=== PATIENT | female | born 1945 | race Caucasian/White ===

== ENCOUNTER 2018-03-09 19:09 | Emergency (ER) | payer BC ==
[~2018-03-09] VITALS: Ht 165.1 cm; Wt 93.4 kg
[2018-03-09] MEDS ORDERED: ATOR40TA PO (20:10)
[2018-03-09] MEDS ORDERED: FENO145 PO (20:10)
[2018-03-09] MEDS ORDERED: DULO30 PO (20:10)
[2018-03-09] MEDS ORDERED: QUIN10 PO (20:11)
[2018-03-09] MEDS ORDERED: VERA240ER PO (20:11)
[2018-03-09] MEDS ORDERED: SPIR25 PO (20:12)
[2018-03-09] MEDS ORDERED: HYDCHL25 PO (20:12)
[2018-03-09] MEDS ORDERED: METF500C PO (20:13)
[2018-03-09] MEDS ORDERED: Novolog Fl100 UNIT/1 INJ (20:13)
[2018-03-09] MEDS ORDERED: LEVEMIR FL100 UNIT/1 SC (20:14)
[2018-03-09] MEDS ORDERED: Prednisone50 MG PO (20:38)
[2018-03-09] MEDS ORDERED: BENADRYL25 MG PO (20:38)
[2018-03-09] MEDS ORDERED: Pepcid40 MG PO (20:38)
== END 2018-03-09 20:45 | disposition home or self-care (01) ==
LOC: ER 19:09
DX: T63.441A Toxic effect of venom of bees, accidental (unintentional), initial encounter (principal); I10 Essential (primary) hypertension; E11.9 Type 2 diabetes mellitus without complications; Z91.030 Bee allergy status; Z88.8 Allergy status to other drugs, medicaments and biological substances; Z79.899 Other long term (current) drug therapy; Z79.4 Long term (current) use of insulin; Z79.52 Long term (current) use of systemic steroids
CPT/HCPCS: 99283; Q0163

== ENCOUNTER → 2020-06-18 | Outpatient (CLI) | payer BC ==
[~2020-06-18] MED LIST: ATOR40TA PO; BENADRYL25 MG PO; DULO30 PO; FENO145 PO; HYDCHL25 PO; LEVEMIR FL100 UNIT/1 SC; METF500C PO; Novolog Fl100 UNIT/1 INJ; Pepcid40 MG PO; Prednisone50 MG PO; QUIN10 PO; SPIR25 PO; VERA240ER PO
[2020-06-20 09:16] LABS: Stool Occult Bld Immuno 1 Negative (NEGATIVE)
== END | disposition home or self-care (01) ==
LOC: LAB 14:00
PROVIDERS: Student in an Organized Health Care Education/Training Program
DX: Z12.11 Encounter for screening for malignant neoplasm of colon (principal)
CPT/HCPCS: G0328

== ENCOUNTER 2021-11-03 11:05 | Inpatient (IN) | payer MEDICARE, BC ==
[~2021-11-03] VITALS: Ht 162.6 cm; Wt 85.4 kg
[~2021-11-03 11:05] MED LIST changes: +GLUCOPHAGE1000 M1 PO; -LEVEMIR FL100 UNIT/1 SC; +LEVEMIR FL100 UNIT/2 SC; -METF500C PO; +NOVOLOG100 UNIT/3 SC; -Novolog Fl100 UNIT/1 INJ
[2021-11-03 12:19] LABS: BASOPHILS ABSOLUTE AUTO 0.06 K/mm3 (0.00-0.23); BASOPHILS PERCENT AUTO 1 % (0-2); EOSINOPHILS ABSOLUTE AUTO 0.13 K/mm3 (0.00-0.68); EOSINOPHILS PERCENT AUTO 1 % (0-6); Hematocrit 39.4 % (33.0-51.0); Hemoglobin 12.9 g/dL (11.5-16.0); IMMATURE GRAN ABSOLUTE AUTO 0.03 K/mm3 (0.00-0.10); IMMATURE GRAN PERCENT AUTO 0 % (0-1); LYMPHOCYTES ABSOLUTE AUTO 0.92 K/mm3 (0.84-5.20); LYMPHOCYTES PERCENT AUTO 10 % (21-46); MONOCYTES ABSOLUTE AUTO 0.79 K/mm3 (0.16-1.47); MONOCYTES PERCENT AUTO 8 % (4-13); Mean Corpuscular HGB 28.8 pg (26.0-34.0); Mean Corpuscular HGB Conc 32.7 g/dL (31.5-36.5); Mean Corpuscular Volume 88 fL (80-100); NEUTROPHILS ABSOLUTE AUTO 7.53 K/mm3 (1.96-9.15); NEUTROPHILS PERCENT AUTO 80 % (41-73); Platelet Count 277 K/mm3 (150-400); RDW Coefficient Variation 14.2 % (11.7-14.2); RDW Standard Deviation 45.4 fL (35.1-46.3); Red Blood Cell Count 4.48 M/mm3 (3.80-5.20); White Blood Cell Count 9.46 K/mm3 (4.00-11.30)
[2021-11-03 12:36] LABS: Albumin, Blood 3.9 g/dL (3.4-5.0); Albumin/Globulin Ratio 0.8 (0.8-1.8); Bilirubin, Total 0.5 mg/dL (0.1-1.0); Bun/Creatinine Ratio 49.1 (12.0-20.0); Calcium, Blood 9.8 mg/dL (8.5-10.1); Creatinine, Blood 1.14 mg/dL (0.40-1.00); Globulin, Blood 4.6 g/dL (2.2-4.0); Potassium, Blood 4.8 mmol/L (3.5-5.5); Total Protein, Blood 8.5 g/dL (6.4-8.2)
[2021-11-03] MEDS ORDERED: Cymbalta20 MG PO (13:29)
[2021-11-03] MEDS ORDERED: Accupril40 MG PO (13:30)
[2021-11-03] MEDS ORDERED: HYDROCHLOROTHIA25 MG PO (13:30)
[2021-11-03] MEDS ORDERED: COLACE100 MG PO (13:31)
[2021-11-03] MEDS ORDERED: SPIR50 PO (13:31)
[2021-11-03] MEDS ORDERED: CENTRUM SILVER1 EAC2 PO (13:31)
[2021-11-03] MEDS ORDERED: AREDS (13:32)
[2021-11-03] MEDS ORDERED: CALCIUM 500 MG1 EAC2 (13:33)
[2021-11-03] MEDS ORDERED: TUMERIC (13:33)
[2021-11-03 14:19] LABS: Anti-Xa UFH, PHA Monitoring <0.10 IU/mL; International Normalized Ratio 1.04; Prothrombin Time Results 10.9 Sec (9.7-11.5)
[2021-11-03 14:33] LABS: Creatine Kinase MB 8.4 ng/mL (0.0-3.6); Creatine Kinase MB Index 6.8 (0.0-4.0)
--- NOTE | 2021-11-03 17:30 | NUR ---
Pt arrived to 331 via gurney from ED, a/ox3, pleasant and cooperative with care, follows commands well, denies any pain, but rather pressure and sob with any activity, placed her on 2 liters as she is sob going to the bathroom, lungs are clear in upper hook, fine crackles in bases, resp even with some laboring with activity, no cough noted or reported, hrr, tele in place running sr per security monitor, no edema noted, ppp+1, cap refill <3 sec, vs stable, afebrile, iv site to rac site is clear and patent, infusing heperin gtt as ordered, btx4, abd flat soft nontender, voids without diff, skin c/w/d, daily almazan, oriented to room layout and call system, call light in reach. will be having an angio in am, instructed her on what to expect.
[2021-11-03] MEDS ORDERED: VICTOZA 2-0.6 MG/0.1 SC (17:51)
[2021-11-03] MEDS ORDERED: JARDIANCE10 MG PO (18:33)
--- NOTE | 2021-11-04 05:00 | NUR ---
PT ON HEPARIN DRIP (DOSING PER PHARMACY). MAITAINED NPO FOR ANGIO TODAY. TROPONIN AT [address] NICHOLE NOTIFIED WITH NO NEW ORDERS. TROPONIN AT [address] PIERCE NOTIFIED WITH NO NEW ORDERS. PT TO HAVE ONE MORE TROPONIN AT 0500. PT C/O FEELING ANXIOUS TONIGHT DUE TO CURRENT HOSPITALIZATION AND REQUESTING SOMETHING TO HELP CALM HER NERVES. DR. NICHOLE NOTIFIED WITH ORDER FOR ATIVAN. MEDICATION GIVEN WITH POSTIVE EFFECT.
[2021-11-04 06:05] LABS: BASOPHILS ABSOLUTE AUTO 0.09 K/mm3 (0.00-0.23); BASOPHILS PERCENT AUTO 1 % (0-2); EOSINOPHILS ABSOLUTE AUTO 0.33 K/mm3 (0.00-0.68); EOSINOPHILS PERCENT AUTO 4 % (0-6); Hematocrit 38.4 % (33.0-51.0); Hemoglobin 12.3 g/dL (11.5-16.0); IMMATURE GRAN ABSOLUTE AUTO 0.02 K/mm3 (0.00-0.10); IMMATURE GRAN PERCENT AUTO 0 % (0-1); LYMPHOCYTES PERCENT AUTO 21 % (21-46); MONOCYTES ABSOLUTE AUTO 0.96 K/mm3 (0.16-1.47); MONOCYTES PERCENT AUTO 11 % (4-13); Mean Corpuscular HGB 28.5 pg (26.0-34.0); Mean Corpuscular Volume 89 fL (80-100); Mean Platelet Volume 10.8 fL (9.1-12.4); NEUTROPHILS ABSOLUTE AUTO 5.57 K/mm3 (1.96-9.15); NEUTROPHILS PERCENT AUTO 63 % (41-73); Platelet Count 260 K/mm3 (150-400); RDW Coefficient Variation 14.2 % (11.7-14.2); RDW Standard Deviation 45.7 fL (35.1-46.3); Red Blood Cell Count 4.32 M/mm3 (3.80-5.20); White Blood Cell Count 8.87 K/mm3 (4.00-11.30)
[2021-11-04 06:34] LABS: Alanine Aminotransfer (ALT/SGP 23 U/L (12-78); Albumin, Blood 3.6 g/dL (3.4-5.0); Albumin/Globulin Ratio 0.9 (0.8-1.8); Alk Phos 45 U/L (50-136); Anion Gap 9 mmol/L (6-16); Aspartate Aminotrans (AST/SGOT 29 U/L (12-37); Bilirubin, Total 0.5 mg/dL (0.1-1.0); Blood Urea Nitrogen 44 mg/dL (8-24); Bun/Creatinine Ratio 42.3 (12.0-20.0); CHOL/HDL RATIO 2.8; CO2, Blood 23 mmol/L (21-32); CPK Creatine Kinase 103 U/L (26-193); Calcium, Blood 8.8 mg/dL (8.5-10.1); Chloride, Blood 106 mmol/L (98-108); Cholesterol 103 mg/dL (50-200); Creatine Kinase MB 5.7 ng/mL (0.0-3.6); Creatine Kinase MB Index 5.5 (0.0-4.0); Creatinine, Blood 1.04 mg/dL (0.40-1.00); Globulin, Blood 4.1 g/dL (2.2-4.0); Glomerular Filtration Rate 52 (60-); Glucose, Blood 127 mg/dL (70-99); HDL Cholesterol 37 mg/dL (>39); LDL/HDL RATIO 0.9; Low Density Lipoprotein Chol 33 mg/dL (0-110); Magnesium, Blood 2.1 mg/dL (1.6-2.4); Phosphorus, Blood 3.8 mg/dL (2.5-4.9); Potassium, Blood 4.5 mmol/L (3.5-5.5); Sodium, Blood 138 mmol/L (136-145); Total Protein, Blood 7.7 g/dL (6.4-8.2); Triglycerides 165 mg/dL (30-160); Very Low Density Lipoprot Chol 33 mg/dL (6-32)
--- NOTE | 2021-11-04 07:10 | NUR ---
DOUBLE CHECK HEPARIN W/ DERIAN LARIOS 18U/KG 24.5 ML/HR
--- NOTE | 2021-11-04 07:57 | NUR ---
NOTIFIED OF CRITICAL HIGH TROP @ THIS TIME
--- NOTE | 2021-11-04 14:15 | NUR ---
PT TO PROCEDURE, PLAN TO TRANSFER TO PCU POST ANGIO
--- NOTE | 2021-11-04 15:05 | NUR ---
PT TO RECOVERY ROOM POST PROCEDURE. PT AWAKE AND CONVERSING APPROPRIATELY; DENIES CHEST PAIN POST PROCEDURE. MONITOR SR WITH PAC'S 90'S, B/P 132/71, AFEBRILE, SPO2 92% RA. R RADIAL SITE NO SWELLING/HEMATOMA, TR BAND IN PLACE 10 ML AIR; RUE POSITIVE PLEUTH POST TR BAND PLACEMENT. PT TAKING SIPS OF JUICE WITHOUT ISSUE.
--- NOTE | 2021-11-04 15:31 | NUR ---
REPORT GIVEN TO MARIAJOSE RN PCU VIA TELEPHONE. [facility] BRINGING PT DOWN TO PCU ROOM [address] VS STABLE. PT ALERT AND ORIENTED.
--- NOTE | 2021-11-04 15:35 | NUR ---
PT TO U 9 VIA DIANA, CONDITION STABLE.
--- NOTE | 2021-11-04 15:45 | NUR ---
PATIENT CAME BACK FROM PAINT PREPPER TODAY 11/04/21 AT 1520. ANGIO PATIENT IS ALERT AND ORIENTED X4. VS ARE WNL AND IS ON RA. PATIENT DENIES PAIN AT THIS TIME. RIGHT RADIAL SITE HAS ARM BAND AND IS C/D/I. PATIENT DENIES NUMBNESS AND TINGLING. SHE CAN ALSO MOVE HER FINGERS AND TOES WHEN ASKED. SHE ALSO DENIES CHEST PAIN OR SOB. PATIENT IS TOLERATING SMALL AMOUNTS OF PO INTAKE. PATIENT IS TOLD TO KEEP HER RIGHT ARM DOWN AND NOT ABOVE HEAD. PATIENT VERBALIZED UNDERSTANDING OF INSTRUCTIONS. CALL LIGHT WITHIN REACH.
[2021-11-05 04:18] LABS: Hematocrit 38.2 % (33.0-51.0); Hemoglobin 12.3 g/dL (11.5-16.0); Mean Corpuscular HGB 28.9 pg (26.0-34.0); Mean Corpuscular HGB Conc 32.2 g/dL (31.5-36.5); Mean Corpuscular Volume 90 fL (80-100); Platelet Count 264 K/mm3 (150-400); RDW Coefficient Variation 14.2 % (11.7-14.2); RDW Standard Deviation 46.4 fL (35.1-46.3); Red Blood Cell Count 4.26 M/mm3 (3.80-5.20); White Blood Cell Count 7.03 K/mm3 (4.00-11.30)
[2021-11-05 04:54] LABS: Bun/Creatinine Ratio 36.1 (12.0-20.0); Creatinine, Blood 1.19 mg/dL (0.40-1.00); Potassium, Blood 4.6 mmol/L (3.5-5.5)
--- NOTE | 2021-11-05 05:34 | NUR ---
NOC SHIFT SUMMARY PT SLEPT WELL OVERNIGHT, ORIENTED X4, VSS PER PT TREND, SR ON TELEMETRY, NO COMPLAINTS OF PAIN. TR BAND REMAINED ON AND FULLY INFLATED AT START OF SHIFT. TOOK OUT 11ML OF AIR OVER 1.5 HOURS WITH NO BLEEDING OR HEMATOMA. PT TOLERATED WELL. REMOVED TR BAND AT 2200. TEGARDERM APPLIED TO SITE. WILL CONTINUE TO MONITOR AND PASS ON TO DAY RN.
--- NOTE | 2021-11-05 09:38 | NUR ---
ATTEMPT TO CALL REPORT TO CELSO ENCINAS (TALIA LARIOS) TRANSFERRED TO HER PHONE BY UGO. NO ANSWER AFTER NUMEROUS RINGS. 0935 WILL ATTEMPT AGAIN IN 10 MINUTES.
--- NOTE | 2021-11-05 10:41 | NUR ---
REPORT TO TALIA LARIOS AT [facility]. ALL QUESTIONS ADDRESSED. PATIENT LEAVES VIA GURNEY IN AMBULANCE AT 1030 AM NADN. PATIENT CALM AND HAS PLEASANT AFFECT. WILL NOTIFY SECURITY OF HER CAR IN PARKING LOT AND HAVE THEM KEEP AN EYE ON IT TILL SHE IS ABLE TO HAVE SOMEONE COME GET IT.
== END 2021-11-05 10:38 | disposition short-term general hospital (02) | DRG 282 ==
LOC: ER 11:05 → MEDS 15:48 → PCU 11-04 15:09
PROVIDERS: Emergency Medicine; Internal Medicine Cardiovascular Disease; Physician Assistant; Student in an Organized Health Care Education/Training Program; ADMIT Family Medicine
PROC: 4A023N7 Measurement of Cardiac Sampling and Pressure, Left Heart, Percutaneous Approach (ICD-10-PCS; principal; 2021-11-04)
PROC: B2111ZZ Fluoroscopy of Multiple Coronary Arteries using Low Osmolar Contrast (ICD-10-PCS; 2021-11-04)
PROC: B2151ZZ Fluoroscopy of Left Heart using Low Osmolar Contrast (ICD-10-PCS; 2021-11-04)
DX: I21.4 Non-ST elevation (NSTEMI) myocardial infarction (principal); E11.9 Type 2 diabetes mellitus without complications; I10 Essential (primary) hypertension; E78.5 Hyperlipidemia, unspecified; E66.9 Obesity, unspecified; I25.10 Atherosclerotic heart disease of native coronary artery without angina pectoris; I25.5 Ischemic cardiomyopathy; Z68.35 Body mass index [BMI] 35.0-35.9, adult; Z91.038 Other insect allergy status; Z91.09 Other allergy status, other than to drugs and biological substances; Z79.84 Long term (current) use of oral hypoglycemic drugs; Z79.4 Long term (current) use of insulin; Z79.899 Other long term (current) drug therapy
CPT/HCPCS: 36415; 71045; 80048; 80053; 80061; 82550; 82553; 82947; 83036; 83735; 83880; 84100; 84443; 84484; 85025; 85027; 85520; 85610; 85730; 93005; 93010; 93458; 93880; 96374; 99152; 99153; 99285-25; A9270; C1769; C1894; C8929; J1644; J1815; J2250; J3010; J7030; Q9957; Q9967

== ENCOUNTER 2022-05-07 18:09 | Observation (INO) | payer BC ==
[~2022-05-07] VITALS: Ht 165.1 cm; Wt 86.0 kg
[~2022-05-07 18:09] MED LIST changes: +AREDS; +Accupril40 MG PO; +CALCIUM 500 MG1 EAC2 PO; +CENTRUM SILVER1 EAC2 PO; +COLACE100 MG PO; +Cymbalta20 MG PO; +HYDROCHLOROTHIA25 MG PO; +JARDIANCE10 MG PO; +LANTUS SOL100 UNIT/1 SC; -LEVEMIR FL100 UNIT/2 SC; +SPIR50 PO; +TUMERIC; +VICTOZA 2-0.6 MG/0.1 SC
[2022-05-07 20:55] LABS: BASOPHILS ABSOLUTE AUTO 0.06 K/mm3 (0.00-0.23); BASOPHILS PERCENT AUTO 1 % (0-2); EOSINOPHILS ABSOLUTE AUTO 0.01 K/mm3 (0.00-0.68); EOSINOPHILS PERCENT AUTO 0 % (0-6); Hematocrit 38.1 % (33.0-51.0); Hemoglobin 12.9 g/dL (11.5-16.0); IMMATURE GRAN ABSOLUTE AUTO 0.03 K/mm3 (0.00-0.10); IMMATURE GRAN PERCENT AUTO 0 % (0-1); LYMPHOCYTES ABSOLUTE AUTO 0.57 K/mm3 (0.84-5.20); LYMPHOCYTES PERCENT AUTO 6 % (21-46); MONOCYTES ABSOLUTE AUTO 1.01 K/mm3 (0.16-1.47); MONOCYTES PERCENT AUTO 11 % (4-13); Mean Corpuscular HGB 29.6 pg (26.0-34.0); Mean Corpuscular HGB Conc 33.9 g/dL (31.5-36.5); Mean Corpuscular Volume 87 fL (80-100); Mean Platelet Volume 10.3 fL (9.1-12.4); NEUTROPHILS ABSOLUTE AUTO 7.56 K/mm3 (1.96-9.15); NEUTROPHILS PERCENT AUTO 82 % (41-73); Platelet Count 204 K/mm3 (150-400); RDW Coefficient Variation 13.6 % (11.7-14.2); RDW Standard Deviation 43.8 fL (35.1-46.3); Red Blood Cell Count 4.36 M/mm3 (3.80-5.20); White Blood Cell Count 9.24 K/mm3 (4.00-11.30)
[2022-05-07 21:10] LABS: Albumin, Blood 3.1 g/dL (3.4-5.0); Albumin/Globulin Ratio 0.8 (0.8-1.8); Bilirubin, Total 0.8 mg/dL (0.1-1.0); Calcium, Blood 9.1 mg/dL (8.5-10.1); Creatinine, Blood 0.83 mg/dL (0.40-1.00); Potassium, Blood 4.8 mmol/L (3.5-5.5); Total Protein, Blood 7.1 g/dL (6.4-8.2)
[2022-05-07 21:16] LABS: Source, Urine Clean Catch
[2022-05-07 21:22] LABS: Appearance, Urine Hazy (Clear); Bilirubin, Urine Neg (Neg); Blood, Urine 3+ (Neg); Glucose Qualitative, Urine Neg (Neg); Ketones, Urine Neg (Neg); Leukocyte Esterase, Urine Neg (Neg); Nitrite, Urine Neg (Neg); Protein, Urine 3+ (Neg); Urobilinogen, Urine NORM (Normal)
[2022-05-07 21:31] LABS: Color, Urine Pale Yellow (P-Yellow)
[2022-05-07 21:33] LABS: Bacteria Many /hpf; Red Blood Cells, Urine 0-2 /hpf (0-2); Squamous Epithelial Cells Few /hpf (Few); White Blood Cells, Urine 0-2 /hpf (0-5)
[2022-05-07 21:54] LABS: Creatine Kinase MB Index 0.4 (0.0-4.0)
--- NOTE | 2022-05-08 04:51 | NUR ---
SHIFT SUMMARY: Patient arrived on unit from ED around 414. Pt is A/Ox4 and call light appropriate. Chief complaint is her R hip pain. Denies any numbness/tingling. Pedal pulses strong. Skin warm. IV Toradol given for pain relief. pt is on Tele and running SR. Pt feels very weak and helps minimally when repostioning. Purewick is in place for urination needs.
[2022-05-08 05:20] LABS: Albumin/Globulin Ratio 0.7 (0.8-1.8); Bilirubin, Total 0.6 mg/dL (0.1-1.0); Bun/Creatinine Ratio 39.5 (12.0-20.0); Calcium, Blood 9.1 mg/dL (8.5-10.1); Creatinine, Blood 0.96 mg/dL (0.40-1.00); Globulin, Blood 4.1 g/dL (2.2-4.0); Total Protein, Blood 7.1 g/dL (6.4-8.2)
[2022-05-08] MEDS ORDERED: LISI10 PO (11:53)
[2022-05-08] MEDS ORDERED: CARV6.25 PO (11:54)
[2022-05-08] MEDS ORDERED: FURO40 PO (11:55)
[2022-05-08] MEDS ORDERED: KLOR-CON 1010 ME1 PO (11:55)
[2022-05-08] MEDS ORDERED: Aspir 8181 MG PO (11:57)
--- NOTE | 2022-05-08 18:00 | NUR ---
SHIFT SUMMARY PT DROWSY THE FIRST HALF OF THE SHIFT. MORE ALERT THIS AFTERNOON. WORKED WITH PHYSICAL THERAPY AND GOT OUT OF BED AND INTO CHAIR FOR A FEW HOURS WITH 1P ASSIST. PT PLEASANT & COOPERATIVE THIS SHIFT. HOME MED REC COMPLETED THIS SHIFT AND DR. ARMENTA NOTIFIED. NS AT 50ML/HR STARTED THIS SHIFT. NO OTHER ACUTE CHANGES IN ASSESSMENT AT THIS TIME. VS REVIEWED. CALL LIGHT IN REACH. DENIES OTHER NEEDS AT THIS TIME.
[2022-05-09 04:59] LABS: BASOPHILS ABSOLUTE AUTO 0.06 K/mm3 (0.00-0.23); BASOPHILS PERCENT AUTO 1 % (0-2); EOSINOPHILS ABSOLUTE AUTO 0.47 K/mm3 (0.00-0.68); EOSINOPHILS PERCENT AUTO 8 % (0-6); Hematocrit 33.2 % (33.0-51.0); IMMATURE GRAN ABSOLUTE AUTO 0.02 K/mm3 (0.00-0.10); IMMATURE GRAN PERCENT AUTO 0 % (0-1); LYMPHOCYTES ABSOLUTE AUTO 1.03 K/mm3 (0.84-5.20); LYMPHOCYTES PERCENT AUTO 18 % (21-46); MONOCYTES PERCENT AUTO 12 % (4-13); Mean Corpuscular HGB 29.3 pg (26.0-34.0); Mean Corpuscular HGB Conc 33.1 g/dL (31.5-36.5); Mean Corpuscular Volume 88 fL (80-100); Mean Platelet Volume 9.8 fL (9.1-12.4); NEUTROPHILS ABSOLUTE AUTO 3.62 K/mm3 (1.96-9.15); NEUTROPHILS PERCENT AUTO 61 % (41-73); Platelet Count 167 K/mm3 (150-400); RDW Coefficient Variation 13.4 % (11.7-14.2); RDW Standard Deviation 43.8 fL (35.1-46.3); Red Blood Cell Count 3.76 M/mm3 (3.80-5.20)
[2022-05-09 05:22] LABS: Albumin, Blood 2.6 g/dL (3.4-5.0); Albumin/Globulin Ratio 0.7 (0.8-1.8); Bilirubin, Total 0.4 mg/dL (0.1-1.0); Bun/Creatinine Ratio 50.5 (12.0-20.0); Calcium, Blood 8.7 mg/dL (8.5-10.1); Creatinine, Blood 1.03 mg/dL (0.40-1.00); Globulin, Blood 3.8 g/dL (2.2-4.0); Magnesium, Blood 2.1 mg/dL (1.6-2.4); Phosphorus, Blood 4.2 mg/dL (2.5-4.9); Potassium, Blood 3.9 mmol/L (3.5-5.5); Total Protein, Blood 6.4 g/dL (6.4-8.2)
--- NOTE | 2022-05-09 05:26 | NUR ---
A/OX4; CONFUSED AT TIMES (SELF-REPORTED) AND FORGETFUL. CALM AND COOPERATIVE. C/O MILD HIP PAIN; PER PATIENT TYLENOL WAS INEFFECTIVE BUT THE TORADOL WAS HELPFUL; DENIED PAIN AT REASSESSMENT. 1X ASSIST TO TRANSFER PER REPORT, NOT OOB THIS SHIFT. 2X ASSIST Q2 TURN (BLANCHABLE REDNESS COCCYX). PUREWICK IN PLACE OVERNIGHT. TELE: SR 60's -80's. NEW IV PLACED L FA; IVF INFUSING. BED ALARM SET. CALL LIGHT IN REACH; ENCOURAGED TO MAKE NEEDS KNOWN.
--- NOTE | 2022-05-09 17:39 | NUR ---
SHIFT SUMMARY VINNIE REMOVED THIS AM. PT NOW USING THE BATHROOM OR BSC FOR TOILETING. OT SHOWERED TODAY. MEDICATED WITH VISCOUS LIDOCAINE AND TYLENOL FOR MOUTH PAIN TODAY. PT STATES THEY HAVE IMPROVED HER PAIN. CURRENTLY SITTING ON THE EDGE OF THE BED, EATING DINNER. IV FLUIDS DCED. DR. BEGUM NOTIFED THAT PT NEEDED SOME BOWEL CARE. COLACE WAS GIVEN ORDERED AND PT SINCE HAS HAD A BM. ALSO NOTIFED THAT THE PT STATES SHE TAKES HER LANTUS TWICE A DAY. ORDERS WERE UPDATED. NO OTHER ACUTE CHANGES IN ASSESSMENT AT THIS TIME. VS REVIEWED.
[2022-05-10 04:42] LABS: Bun/Creatinine Ratio 49.6 (12.0-20.0); Creatinine, Blood 0.79 mg/dL (0.40-1.00); Potassium, Blood 4.3 mmol/L (3.5-5.5)
--- NOTE | 2022-05-10 06:05 | NUR ---
A/OX4; FORGETFUL AT TIMES. CALM AND COOPERATIVE. C/O SEVERE L SIDE DENTAL AND TONGUE PAIN, ORDER FOR TRAMADOL OBTAINED; GIVEN 2X THIS SHIFT WITH VERY MINIMAL EFFECT PER PATIENT. ORDER OBTAINED FOR 1X DOSE FENTYNAL; HELPFUL PER PATIENT. TELE: SR WITH HR IN 60's. ABX PER ORDERS. BLANCHABLE REDNESS TO COCCYX; REPOSITIONED FREQUENTLY THROUGHOUT SHIFT. 1X ASSIST TO BSC WITH WALKER AND GAITBELT. BED ALARM SET, CALL LIGHT IN REACH, ENCOURAGED TO MAKE NEEDS KNOWN.
--- NOTE | 2022-05-10 16:09 | NUR ---
SHIFT SUMMARY PT IS ENCOURAGED AND MOTIVED TO INCREASE AMBULATION. AA0X4 TODAY. PAIN LOCALIZED TO HER JAW ON THE LEFT SIDE. CT SCAN DONE TODAY. PT REPORTS SOME PAIN ON COCCYX, DRESSING APPLIED FOR COMFORT AND PREVENTION. ABX INFUSING PER ORDERS. PT HAS DECLINED PAIN MEDICATION DURING SHIFT.
--- NOTE | 2022-05-11 06:12 | NUR ---
A/OX4; FORGETFUL AT TIMES. CALM AND COOPERATIVE. TELE: SR WITH HR IN 60's. BLANCHABLE REDNESS TO COCCYX; ANTI-FUNGAL CREAM PER ORDERS AND REPOSITIONED FREQUENTLY THROUGHOUT SHIFT. 1X ASSIST TO BSC WITH WALKER AND GAITBELT. BED ALARM SET, CALL LIGHT IN REACH, ENCOURAGED TO MAKE NEEDS KNOWN.
[2022-05-11 07:59] LABS: Hematocrit 35.6 % (33.0-51.0); Hemoglobin 11.7 g/dL (11.5-16.0); Mean Corpuscular HGB 28.5 pg (26.0-34.0); Mean Corpuscular HGB Conc 32.9 g/dL (31.5-36.5); Mean Corpuscular Volume 87 fL (80-100); Mean Platelet Volume 9.8 fL (9.1-12.4); Platelet Count 213 K/mm3 (150-400); RDW Coefficient Variation 12.9 % (11.7-14.2); RDW Standard Deviation 40.8 fL (35.1-46.3); Red Blood Cell Count 4.11 M/mm3 (3.80-5.20); White Blood Cell Count 5.85 K/mm3 (4.00-11.30)
[2022-05-11 08:18] LABS: Albumin, Blood 2.8 g/dL (3.4-5.0); Albumin/Globulin Ratio 0.7 (0.8-1.8); Bilirubin, Total 0.4 mg/dL (0.1-1.0); Bun/Creatinine Ratio 36.4 (12.0-20.0); Calcium, Blood 9.5 mg/dL (8.5-10.1); Creatinine, Blood 0.74 mg/dL (0.40-1.00); Globulin, Blood 4.1 g/dL (2.2-4.0); Potassium, Blood 4.8 mmol/L (3.5-5.5); Total Protein, Blood 6.9 g/dL (6.4-8.2)
[2022-05-11 08:54] LABS: BAND PERCENT MAN 3 % (0-8); BASOPHILS ABSOLUTE MAN 0.11 K/mm3 (0.00-0.23); BASOPHILS PERCENT MAN 2 % (0-2); EOSINOPHILS ABSOLUTE MAN 0.64 K/mm3 (0.00-0.68); EOSINOPHILS PERCENT MAN 11 % (0-6); LYMPHOCYTES ABSOLUTE MAN 1.75 K/mm3 (0.84-5.20); LYMPHOCYTES PERCENT MAN 28 % (21-46); MONOCYTES ABSOLUTE MAN 0.35 K/mm3 (0.16-1.47); MONOCYTES PERCENT MAN 6 % (4-13); NEUTROPHILS ABSOLUTE MAN 2.86 K/mm3 (1.96-9.15); SEG NEUTROPHILS PERCENT MAN 46 % (41-73); TOTAL CELLS COUNTED 100
[2022-05-11 08:55] LABS: PLASMA CELL ABSOLUTE MAN 0.11 K/mm3 (0.00-0.00); PLASMA CELLS PERCENT MAN 2 % (0-0)
[2022-05-11 08:56] LABS: LYMPHOCYTES % ATYPICAL MANUAL 2 % (0-0)
--- NOTE | 2022-05-11 10:59 | NUR ---
PT IS ON ROOM AIR. ANXIOUS. WORKED WITH PHYSICAL THERAPY TODAY, AMBULATED TO BATHROOM AND END OF HALLWAY. COOPERATIVE WITH CARE. DR. ORONA AT BEDSIDE, DISCUSSING DISCHARGE TO SNF TODAY. GLASS WORKER DISCUSSED DISCHARGE WITH PT. A&O X 4. IV ACCESS TO RIGHT ARM. MANIFOLD OPERATOR REPORTS SINUS 94.
[2022-05-11 13:51] LABS: Influenza A, PCR NEGATIVE (NEGATIVE); Influenza B, PCR NEGATIVE (NEGATIVE); Resp Syncytial Virus, PCR NEGATIVE (NEGATIVE); SARS-Cov-2 (COVID-19) PCR, MMC NEGATIVE (NEGATIVE)
[2022-05-11] MEDS ORDERED: ACET325 PO (15:01)
[2022-05-11] MEDS ORDERED: Norvasc5 MG PO (15:01)
[2022-05-11] MEDS ORDERED: AMOCLA875 PO (15:02)
[2022-05-11] MEDS ORDERED: KETO15TC TOP (15:03)
[2022-05-11] MEDS ORDERED: TRAM50 PO (15:03)
--- NOTE | 2022-05-11 15:10 | NUR ---
pt is being transported to [facility] via wheelchair and [facility]. Facesheet given to [facility]. Personal belongings given to pt. IV removed, Telemetry patches removed. Pt tolerated discharge procedure. Packet prepared by discharge rehab department manager given to [facility]. RN called report to Nurse Lebron at [facility].
== END 2022-05-11 15:21 ==
LOC: ER 18:09 → MEDS 18:10
PROVIDERS: Emergency Medicine; Family Medicine; Hospitalist; Student in an Organized Health Care Education/Training Program; ADMIT Family Medicine
DX: T79.6XXA Traumatic ischemia of muscle, initial encounter (principal); N39.0 Urinary tract infection, site not specified; M25.552 Pain in left hip; N18.31 Chronic kidney disease, stage 3a; Z95.1 Presence of aortocoronary bypass graft; E11.9 Type 2 diabetes mellitus without complications; E78.5 Hyperlipidemia, unspecified; Z66 Do not resuscitate; R21 Rash and other nonspecific skin eruption; Z88.8 Allergy status to other drugs, medicaments and biological substances; Z91.038 Other insect allergy status; Z79.84 Long term (current) use of oral hypoglycemic drugs; Z79.4 Long term (current) use of insulin; Z20.822 Contact with and (suspected) exposure to COVID-19
CPT/HCPCS: 0241U; 36415; 70450; 70487; 71045; 73502; 80048; 80053; 81001; 82550; 82553; 82947; 83735; 84100; 85025; 87077; 87086; 87186; 93005; 93010; 96361; 96372; 96374; 96375; 96376; 97110; 97116; 97162; 97165; 97530; 97535; A9270; G0378; J0696; J1650; J1815; J1885; J3010; J7030; Q9967

== ENCOUNTER → 2022-06-02 | Outpatient (CLI) | payer BC ==
[~2022-06-02] MED LIST changes: +ACET325 PO; +AMOCLA875 PO; +Aspir 8181 MG PO; +CARV6.25 PO; +FURO40 PO; +KETO15TC TOP; +KLOR-CON 1010 ME1 PO; +LISI10 PO; +Norvasc5 MG PO; +TRAM50 PO
== END | disposition home or self-care (01) ==
DX: R39.9 Unspecified symptoms and signs involving the genitourinary system (principal)

== ENCOUNTER 2022-12-01 15:11 | Inpatient (IN) | payer OTHER, MEDICARE, BC ==
[~2022-12-01] VITALS: Ht 162.6 cm; Wt 88.0 kg
[2022-12-01 17:47] LABS: BASOPHILS ABSOLUTE AUTO 0.08 K/mm3 (0.00-0.23); BASOPHILS PERCENT AUTO 1 % (0-2); EOSINOPHILS ABSOLUTE AUTO 0.28 K/mm3 (0.00-0.68); EOSINOPHILS PERCENT AUTO 3 % (0-6); Hematocrit 37.6 % (33.0-51.0); Hemoglobin 12.6 g/dL (11.5-16.0); IMMATURE GRAN ABSOLUTE AUTO 0.07 K/mm3 (0.00-0.10); IMMATURE GRAN PERCENT AUTO 1 % (0-1); LYMPHOCYTES ABSOLUTE AUTO 0.77 K/mm3 (0.84-5.20); LYMPHOCYTES PERCENT AUTO 7 % (21-46); MONOCYTES ABSOLUTE AUTO 0.58 K/mm3 (0.16-1.47); MONOCYTES PERCENT AUTO 6 % (4-13); Mean Corpuscular HGB 29.6 pg (26.0-34.0); Mean Corpuscular HGB Conc 33.5 g/dL (31.5-36.5); Mean Corpuscular Volume 88 fL (80-100); Mean Platelet Volume 9.4 fL (9.1-12.4); NEUTROPHILS ABSOLUTE AUTO 8.61 K/mm3 (1.96-9.15); NEUTROPHILS PERCENT AUTO 83 % (41-73); Platelet Count 266 K/mm3 (150-400); RDW Coefficient Variation 13.3 % (11.7-14.2); RDW Standard Deviation 43.2 fL (35.1-46.3); Red Blood Cell Count 4.26 M/mm3 (3.80-5.20); White Blood Cell Count 10.39 K/mm3 (4.00-11.30)
[2022-12-01 18:07] LABS: Bun/Creatinine Ratio 31.2 (12.0-20.0); Calcium, Blood 9.5 mg/dL (8.5-10.1); Creatinine, Blood 1.12 mg/dL (0.40-1.00); Potassium, Blood 4.9 mmol/L (3.5-5.5)
[2022-12-01 18:11] LABS: International Normalized Ratio 0.97; Prothrombin Time Results 10.2 Sec (9.7-11.5)
[2022-12-01 19:13] LABS: Source, Urine Foley catheter
[2022-12-01 19:18] LABS: Appearance, Urine Clear (Clear); Bilirubin, Urine Neg (Neg); Blood, Urine 2+ (Neg); Color, Urine Yellow (P-Yellow); Glucose Qualitative, Urine 1+ (Neg); Ketones, Urine Neg (Neg); Leukocyte Esterase, Urine Neg (Neg); Nitrite, Urine Neg (Neg); Protein, Urine 4+ (Neg); Urobilinogen, Urine NORM (Normal)
[2022-12-01 19:37] LABS: Squamous Epithelial Cells Rare /hpf (Few); White Blood Cells, Urine 0-2 /hpf (0-5)
[2022-12-01 19:38] LABS: Amorphous Light (0-Heavy); Bacteria Mod /hpf; Hyaline Casts 0-2 /lpf (0-2); Mucus Light (0-Heavy)
[2022-12-01 20:35] VITALS: BP 189/76
--- NOTE | 2022-12-01 21:38 | NUR ---
ARRIVAL PT ARRIVED TO THE FLOOR FROM ER IN NO DISTRESS. A/OX4. PT C/O RIGHT HIP PAIN. RLE APPEARS TO BE SHORTENED AND EXTERNALLY ROTATED. PT REPORTS GOOD SENSATION AND GOOD PULSES NOTED. VSS, HTN NOTED. MEDICATED FROR PAIN AND PLAN TO REASSESS, PRN MEDICATION FOR BP ON EMAR. COYLE PLACED IN ER, FRAINING CLEAR YELLOW URINE. PLAN FOR PT TO BE NPO AT 0000 IN ANTICIPATION FOR SURGERY. THE PATIENT IS CURRENTLY RESTING, IN NO DISTRESS, CALL LIGHT IN REACH
[2022-12-01 22:06] VITALS: BP 187/78
[2022-12-01 23:27] VITALS: BP 166/75
[2022-12-02] VITALS (10 sets, daily range): BP systolic 147–184; BP diastolic 60–90
--- NOTE | 2022-12-02 05:18 | NUR ---
SHIFT SUMMARY VSS, HTN NOTED. PT MEDICATED PER EMAR WITH PRN. PT REMAINS ASYMPTOMATIC. SENSATION AND CIRCULATION REMAIN INTACT IN RLE. PT CAN MOVE TOES AND WIGGLE FOOT ON COMMAND. RLE APPEARED TO BE SHORTENED AND EXTERNALLY ROTATED UPON ARRIVAL BUT NOW APPEARS THE SAME LENGTH THE LLE. PT HAS BEEN NPO SINCE 0000. PAIN HAS BEEN DIFFICULT TO MANAGE, PT REQUIRING IV PAIN MEDICATION AND PO MEDICATION. COYLE REMAINS IN PLACE, DRAINGING YELLOW CLEAR URINE. NO ACUTE EVENTS T/O THE NIGHT. PLAN FOR PT TO HAVE SURGERY TODAY. THE PATIENT IS CURRENTLY RETING, IN NO DISTRESS, CALL LIGHT IN REACH.
--- NOTE | 2022-12-02 06:36 | NUR ---
RESPIRATORY PT C/O NEW ONSET WHEEZING, SATS NOTED 85%. PT PLACED ON 5L O2 VIA NC. HOSPITALIST CALLED, OBTAINED ORDER FOR OTD LASIX, TO STOP FLUIDS, AND TO HAVE BREATHING TX'S. PT'S O2 LOWERED TO 3L AFTER LASIX, SATS 94%. PLAN TO CALL WITH FURTHER CONCERNS
--- NOTE | 2022-12-02 08:17 | NUR ---
MORNING NOTE PT AOX4, FORGETFUL AT TIMES W/ INTERMITTENT EPISODES OF DIFFICULTY EXPRESSING VERBALLY. R FEMORAL NECK FX FOLLOWING A GD LEVEL FALL 12/01/22. PPP, ABLE TO WIGGLE TOES, NO REPORT OF NUMBNESS/TINGLING. CURRENTLY ON 4L VIA NC, SAT 92-93%. BP 183/77, 93 BPM THIS AM. MEDICATED W/ HOME MED COREG, HYDRALIZINE PRN. PLAN IS FOR SURGICAL REPAIR OF R HIP, NPO SINCE MIDNIGHT. SURGICAL INFECTION PREVENTION PERFORMED. COYLE CATHETER IN PLACE PATENT, DRAINING YELLOW URINE. SEE ASSESSMENT FOR MORE INFO.
[2022-12-02 09:25] LABS: BASOPHILS ABSOLUTE AUTO 0.07 K/mm3 (0.00-0.23); BASOPHILS PERCENT AUTO 1 % (0-2); EOSINOPHILS ABSOLUTE AUTO 0.09 K/mm3 (0.00-0.68); EOSINOPHILS PERCENT AUTO 1 % (0-6); Hematocrit 37.5 % (33.0-51.0); Hemoglobin 12.5 g/dL (11.5-16.0); IMMATURE GRAN ABSOLUTE AUTO 0.05 K/mm3 (0.00-0.10); IMMATURE GRAN PERCENT AUTO 1 % (0-1); LYMPHOCYTES ABSOLUTE AUTO 0.71 K/mm3 (0.84-5.20); LYMPHOCYTES PERCENT AUTO 7 % (21-46); MONOCYTES ABSOLUTE AUTO 0.64 K/mm3 (0.16-1.47); MONOCYTES PERCENT AUTO 6 % (4-13); Mean Corpuscular HGB 29.6 pg (26.0-34.0); Mean Corpuscular HGB Conc 33.3 g/dL (31.5-36.5); Mean Corpuscular Volume 89 fL (80-100); Mean Platelet Volume 9.4 fL (9.1-12.4); NEUTROPHILS PERCENT AUTO 84 % (41-73); Platelet Count 245 K/mm3 (150-400); RDW Coefficient Variation 13.3 % (11.7-14.2); RDW Standard Deviation 43.4 fL (35.1-46.3); Red Blood Cell Count 4.23 M/mm3 (3.80-5.20); White Blood Cell Count 10.06 K/mm3 (4.00-11.30)
[2022-12-02 09:43] LABS: Albumin, Blood 3.4 g/dL (3.4-5.0); Albumin/Globulin Ratio 0.8 (0.8-1.8); Bilirubin, Total 0.4 mg/dL (0.1-1.0); Bun/Creatinine Ratio 28.4 (12.0-20.0); Creatinine, Blood 1.02 mg/dL (0.40-1.00); Globulin, Blood 4.1 g/dL (2.2-4.0); Magnesium, Blood 1.5 mg/dL (1.6-2.4); Phosphorus, Blood 4.5 mg/dL (2.5-4.9); Potassium, Blood 4.7 mmol/L (3.5-5.5); Total Protein, Blood 7.5 g/dL (6.4-8.2)
--- NOTE | 2022-12-02 10:37 | NUR ---
UPDATE PRIMARY RN NOTIFIED DR. ARMENTA OF CRITICAL TROP. PT DENIES CP/PRESSURE, SOB. ECHO CURRENTLY IN . DR. ARMENTA PLANS TO CHECK ON PT, WILL MONITOR FOR COMPLAINTS OF CARDIAC S/S.
--- NOTE | 2022-12-02 14:18 | NUR ---
Received a t/c from pt's bedside RN. He reports pt is distraught, tearful and stating she doesn't want to follow through with cardiology, doesn't want surgery on her hip, just wants to be "done". The pt declined spiritual care, but was agreeable to speak to palliative care. I sat with the pt for a while and just held her hand while she cried, then she did talk about what was upsetting her. She states last year was extremely hard, she had a quadruple bypass in [place] and explained the prep leading up to it as "extensive and painful". She also reports she has been falling more and more recently, and no longer feels safe to live alone. She states she does not have a or children, and has one main support person named Yoanna. She gave me permission to call Yoanna, who is also on pt's face sheet. Plan to call her today, in case she is able to come visit patient, or call her to touch base. Palliative will remain available, and will continue to see her.
--- NOTE | 2022-12-02 14:45 | NUR ---
UPDATE DR. HURTADO ROUNDING. UPDATED THIS STUDENT RN & PRIMARY RN, KRISTIN. AWARE OF TRENDING TROP LAB VALUES, DR. HURTADO ASKED TO BE NOT NOTIFIED OF CONTINUED INCREASING TROP SHE IS AWARE & IT IS EXPECTED. CURRENT PLAN IN PLACE TO MANAGE.
--- NOTE | 2022-12-02 17:37 | NUR ---
SHIFT SUMMARY SURGICAL PROCEDURE FOR R FEMORAL NECK FX HAS BEEN PUT ON HOLD WHILE MANAGING CARDIAC CONDITION. BANK CASHIER CONSULT. BP AND PULSE ELEVATED T/O SHIFT, MANAGING PER EMAR. HEPARIN DRIP INFUSING THROUGH POWERGLIDE L UPPER ARM. MULTIPLE IMAGING STUDIES PERFORMED, NO PE OR DVT. AWAITING RESULTS OF ECHO. CURRENTLY ON TELE SR 80'S. PT DENIED SOB, CP/PRESSURE T/O SHIFT. HAS REMAINED ON 4L VIA NC, SAT 97%. PT EXPRESSING DESIRE FOR NON-INVASIVE, SURGICAL MEASURES FOR CARDIAC CONDITION. PALLATIVE CARE AWARE & MET W/ PT TODAY. NO ASSESSED CHANGES W/ FX. PT CURRENTLY RESTING IN RM. WILL REPORT TO ONCOMING RN.
--- NOTE | 2022-12-02 19:45 | NUR ---
[facility] CALLED TO NOTIFY OF A CRITICAL TROP OF 3068. THIS LAB IS STARTING TO TREND DOWN. PER CARDIOLOGY, DO NOT NOTIFY UNLESS THERE ARE NEW ONSET SYMPTOMS.
[2022-12-03] VITALS (9 sets, daily range): BP systolic 142–175; BP diastolic 57–78
[2022-12-03 04:47] LABS: BASOPHILS ABSOLUTE AUTO 0.07 K/mm3 (0.00-0.23); BASOPHILS PERCENT AUTO 1 % (0-2); EOSINOPHILS ABSOLUTE AUTO 0.51 K/mm3 (0.00-0.68); EOSINOPHILS PERCENT AUTO 5 % (0-6); Hematocrit 33.5 % (33.0-51.0); Hemoglobin 11.3 g/dL (11.5-16.0); IMMATURE GRAN ABSOLUTE AUTO 0.02 K/mm3 (0.00-0.10); IMMATURE GRAN PERCENT AUTO 0 % (0-1); LYMPHOCYTES ABSOLUTE AUTO 0.96 K/mm3 (0.84-5.20); LYMPHOCYTES PERCENT AUTO 10 % (21-46); MONOCYTES ABSOLUTE AUTO 0.95 K/mm3 (0.16-1.47); MONOCYTES PERCENT AUTO 10 % (4-13); Mean Corpuscular HGB 29.9 pg (26.0-34.0); Mean Corpuscular HGB Conc 33.7 g/dL (31.5-36.5); Mean Corpuscular Volume 89 fL (80-100); Mean Platelet Volume 9.3 fL (9.1-12.4); NEUTROPHILS ABSOLUTE AUTO 6.98 K/mm3 (1.96-9.15); NEUTROPHILS PERCENT AUTO 74 % (41-73); Platelet Count 218 K/mm3 (150-400); RDW Coefficient Variation 13.5 % (11.7-14.2); RDW Standard Deviation 43.9 fL (35.1-46.3); Red Blood Cell Count 3.78 M/mm3 (3.80-5.20); White Blood Cell Count 9.49 K/mm3 (4.00-11.30)
[2022-12-03 05:03] LABS: Bun/Creatinine Ratio 26.8 (12.0-20.0); Calcium, Blood 8.5 mg/dL (8.5-10.1); Creatinine, Blood 1.12 mg/dL (0.40-1.00); Potassium, Blood 4.1 mmol/L (3.5-5.5)
--- NOTE | 2022-12-03 05:12 | NUR ---
SHIFT SUMMARY VSS, HTN NOTED PER TREND. MEDICATED PER EMAR WITH PRN. PT REMAINS ASYMPTOMATIC AT THIS TIME. TELE READS SR 96. NO ACUTE EVENTS NOTED T/O THE NIGHT. PT WAS ABLE TO SLEEP FOR MOST OF THE SHIFT. NO C/O CP, SOB, TIGHTNESS, RADIATING PAIN, INDIGESTION, CHANGE IN LOC/MENTATION, OR REQUIRING MORE O2. PT SATTING AT 91% ON RA, SHE KEEPS REMOVING THE O2 IN HER SLEEP. PT TOLLERATING PO INTAKE W/O N/V. COYLE REMAINS PATENT, DRAINING CLEAR YELLOW URINE. PT MEDICAATED FOR PAIN WITH PRN'S WITH GOOD RESULTS. PT TOLLERATED MINIMAL REPOSOTIONING T/O THE NIGHT. HEPARIN DRIP REMAINS RUNNING, 17 U/KG/HR. AWAITING ECHO RESULTS TO BE READ AND PLAN TO BE MADE FOR COURSE OF PTS TREATMENTS AT THIS TIME. THE PATIENT IS CURRENTLY SLEEPING, IN NO DISTRESS, CALL LIGHT IN REACH.
--- NOTE | 2022-12-03 07:15 | NUR ---
PATIENT CONSENT STATEMENT. PATIENT CONSECTED THIS 2ND YEAR [facility] RN STUDENT TO PARTICIPATE IN HER CARE TODAY.
--- NOTE | 2022-12-03 17:17 | NUR ---
END OF SHIFT SUMMARY. PT ENDORSES PAIN IN RIGHT HIP FROM FX. MEDICATED PER EMAR WITH TYLENOL AND OXYCODONE. GOOD RELIEF WITH OXY. PT'S COYLE DRAINING TO GRAVITY DENIES DISCOMFORT. TOLERATING PO INTAKE. DENIES CHEST PAIN OR SOB. PT ABLE TO REMAIN OFF 02 THERAPY WITH SATS ABOVE 91%.
[2022-12-04] VITALS (16 sets, daily range): BP systolic 110–196; BP diastolic 51–73
[2022-12-04 04:45] LABS: BASOPHILS ABSOLUTE AUTO 0.08 K/mm3 (0.00-0.23); BASOPHILS PERCENT AUTO 1 % (0-2); EOSINOPHILS ABSOLUTE AUTO 0.78 K/mm3 (0.00-0.68); EOSINOPHILS PERCENT AUTO 8 % (0-6); Hematocrit 32.5 % (33.0-51.0); IMMATURE GRAN ABSOLUTE AUTO 0.03 K/mm3 (0.00-0.10); IMMATURE GRAN PERCENT AUTO 0 % (0-1); LYMPHOCYTES ABSOLUTE AUTO 1.21 K/mm3 (0.84-5.20); LYMPHOCYTES PERCENT AUTO 13 % (21-46); MONOCYTES ABSOLUTE AUTO 1.03 K/mm3 (0.16-1.47); MONOCYTES PERCENT AUTO 11 % (4-13); Mean Corpuscular HGB 29.6 pg (26.0-34.0); Mean Corpuscular HGB Conc 33.8 g/dL (31.5-36.5); Mean Corpuscular Volume 87 fL (80-100); Mean Platelet Volume 9.4 fL (9.1-12.4); NEUTROPHILS ABSOLUTE AUTO 6.44 K/mm3 (1.96-9.15); NEUTROPHILS PERCENT AUTO 67 % (41-73); Platelet Count 203 K/mm3 (150-400); RDW Coefficient Variation 13.2 % (11.7-14.2); RDW Standard Deviation 42.4 fL (35.1-46.3); Red Blood Cell Count 3.72 M/mm3 (3.80-5.20); White Blood Cell Count 9.57 K/mm3 (4.00-11.30)
[2022-12-04 05:08] LABS: Bun/Creatinine Ratio 31.9 (12.0-20.0); Creatinine, Blood 1.16 mg/dL (0.40-1.00); Potassium, Blood 4.2 mmol/L (3.5-5.5)
--- NOTE | 2022-12-04 06:44 | NUR ---
SHIFT SUMMARY NO ACUTE CHANGES OVERNIGHT, PT HAS RESTED OFF AND ON T/O THE NIGHT. PT MEDICATED FOR PAIN PER EMAR. PT HAS NO COMPLAINTS OF CHEST PAIN OR SOB. SHE HAS BEEN HYPERTENSIVE, MEDICATED WITH HYDRALYZINE WITH EFFECT. HEPARIN GTT INFUSING PER ORDERS. PLAN IS FOR SURGERY TODAY ON RIGHT HIP, SHE HAS BEEN NPO SINCE MIDNIGHT. BED IN LOWEST POSITION, CALL LIGHT WITHIN REACH.
--- NOTE | 2022-12-04 08:00 | NUR ---
HEPARIN DRIP HEP DRIP STOPPED AT 0758 IN PREPARATION FOR SURGERY TODAY. DR. MEDINA PROVIDED VERBAL ORDER TO STOP HEPARIN.
--- NOTE | 2022-12-04 13:13 | NUR ---
12/04/22 1313 Maryjo Hennessy PT ENTERED OR WITH COYLE CATHETER
--- NOTE | 2022-12-04 16:54 | NUR ---
PT ARRIVED BACK TO THE ROOM FROM PACU AT 1508. ENE RAMÍREZ RN TOOK REPORT FROM DANIELITO AND SETTLED THE PT IN THE ROOM.
--- NOTE | 2022-12-04 18:36 | NUR ---
SHIFT SUMMARY PT IS POD#0 FROM R HIP REPAIR WITH DR. MEDINA. PAIN HAS BEEN MINIMAL POST-OP. PT IS TOLERATING PO. VSS. WILL MONITOR UNTIL REPORT TO JOSE MIGUEL LARIOS.
[2022-12-05] VITALS (8 sets, daily range): BP systolic 108–172; BP diastolic 46–77
--- NOTE | 2022-12-05 05:05 | NUR ---
SHIFT SUMMARY PT HAS DONE WELL OVERNIGHT, POD O RIGHT HIP REPAIR. VITALS HAVE BEEN STABLE, MEDICATING WITH SCHEDULED TYLENOL. PT PAIN HAS BEEN WELL CONTROLLED AND SHE HAS NOT REQUIRED ANYTHING ELSE FOR PAIN. DRESSING IS C/D/I. IV ANTIBIOTICS INFUSED. RESTFUL NIGHT. BED IN LOWEST POSITION, CALL LIGHT WITHIN REACH.
[2022-12-05 05:12] LABS: BASOPHILS ABSOLUTE AUTO 0.06 K/mm3 (0.00-0.23); BASOPHILS PERCENT AUTO 1 % (0-2); EOSINOPHILS ABSOLUTE AUTO 0.68 K/mm3 (0.00-0.68); EOSINOPHILS PERCENT AUTO 7 % (0-6); Hematocrit 33.3 % (33.0-51.0); Hemoglobin 11.2 g/dL (11.5-16.0); IMMATURE GRAN ABSOLUTE AUTO 0.04 K/mm3 (0.00-0.10); IMMATURE GRAN PERCENT AUTO 0 % (0-1); LYMPHOCYTES ABSOLUTE AUTO 0.51 K/mm3 (0.84-5.20); LYMPHOCYTES PERCENT AUTO 5 % (21-46); MONOCYTES ABSOLUTE AUTO 0.92 K/mm3 (0.16-1.47); MONOCYTES PERCENT AUTO 9 % (4-13); Mean Corpuscular HGB 29.6 pg (26.0-34.0); Mean Corpuscular HGB Conc 33.6 g/dL (31.5-36.5); Mean Corpuscular Volume 88 fL (80-100); Mean Platelet Volume 9.4 fL (9.1-12.4); NEUTROPHILS ABSOLUTE AUTO 7.58 K/mm3 (1.96-9.15); NEUTROPHILS PERCENT AUTO 78 % (41-73); Platelet Count 199 K/mm3 (150-400); RDW Coefficient Variation 13.1 % (11.7-14.2); RDW Standard Deviation 41.9 fL (35.1-46.3); Red Blood Cell Count 3.79 M/mm3 (3.80-5.20); White Blood Cell Count 9.79 K/mm3 (4.00-11.30)
[2022-12-05 05:32] LABS: Bun/Creatinine Ratio 33.8 (12.0-20.0); Calcium, Blood 8.9 mg/dL (8.5-10.1); Creatinine, Blood 1.36 mg/dL (0.40-1.00); Magnesium, Blood 1.9 mg/dL (1.6-2.4); Potassium, Blood 4.4 mmol/L (3.5-5.5)
--- NOTE | 2022-12-05 20:12 | NUR ---
SHIFT SUMMARY PT IS POD#1. PAIN MANAGED WITH TYLENOL, TORADOL AND FLEXERIL. PT SOMEWHAT DROWSY/CONFUSED THIS AM, MENTATION HAS CLEARED T/O THE DAY. PT WAS ABLE TO SIT UP TO THE CHAIR THIS EVENING FOR DINNER. SIT TO STAND LIFT USED FOR TRANSFER FROM BED TO CHAIR, PT WAS PAINFUL DURING TRANSFER BUT REPORTED FEELING BETTER AFTER SITTING UP. O2 SATURATION IMPROVED WHEN SITTING UP TO THE CHAIR AND O2 WEANED TO 1L. PT ENCOURAGED TO USE IS. REPORT GIVEN TO JOSE MIGUEL LARIOS.
[2022-12-06 07:43] VITALS: BP 132/56
--- NOTE | 2022-12-06 08:35 | NUR ---
SUMMARY PT BACK TO BED WITH SIT TO STAND LIFT TONIGHT.
[2022-12-06 14:50] VITALS: BP 106/34
[2022-12-06 16:53] VITALS: BP 144/55
--- NOTE | 2022-12-06 18:35 | NUR ---
SHIFT SUMMARY FATIGUED AND DROWSY AT TIMES. ORIENTED WHEN AWAKE, AND WAKES EASILY. ANXIOUS AND FEARFUL OF ACTIVITY AND MOVEMENT. 2 PERSON MOD ASSIST TO DANGLE AT BEDSIDE. 2 PERSON WITH GB AND FWW TO STAND. UNABLE TO MARCH OR TAKE STEPS OR STAND UPRIGHT. EXERCISES WITH PT AND OT. TOLERATING ADA DIET AND LIQUIDS. PILLS WHOLE IN APPLESAUCE. INSULIN ORDERS ADJUSTED BY DR DUKE AND CONTROL HAS IMPROVED. PAIN MANAGED WITH PO TYLENOL, OXYCODONE CAUSES HER BP AND SPO2 TO DROP. TRAMADOL ORDER PLACED, WILL BEGIN PRN. INC IN ATTENDS OF URINE. AQUACEL C/D/I. INC IN ATTENDS OF URINE.
[2022-12-06 19:42] VITALS: BP 127/52
[2022-12-07 04:33] VITALS: BP 121/54
[2022-12-07 07:17] VITALS: BP 142/51
--- NOTE | 2022-12-07 07:18 | NUR ---
SHIFT SUMMARY PT A&OX4, AND COOPERATIVE WITH CARE. NO ACUTE CHANGES. MEDICATED FOR PAIN ONCE WITH ULTRAM. PT INCONT OF URINE, ATTENDS CHANGED PRN. NO BM THIS SHIFT. TOLERATING PO INTAKE, PILLS WHOLE WITH APPLESAUCE. AQUACEL TO R HIP C/D/I. CALLS APPROPRIATELY, CALL LIGHT WITHIN REACH.
[2022-12-07 14:39] VITALS: BP 139/78
--- NOTE | 2022-12-07 18:08 | NUR ---
SHIFT SUMMARY POD3 R KAYLA HIP, A/OX4, VSS, TOLERATING PO, ABLE TO MOBILIZE BUT VERY WEAK AND SLOW WITH MOVEMENT, 2 PERSON MODERATE/MAX ASSIST WHILE STAND PIVOT TRANSFERRING TO BSC OR CHAIR, UP TO CHAIR FOR BOTH BREAKFAST AND LUNCH, PT TRIED TO SIT DOWN FDC THROUGH THE STAND PIVOT TRANSFER AFTER USING BSC AFTER LUNCH BUT WAS ABLE TO GET HER BOTTOM CLOSE ENOUGH TO THE BED AND LOWERED HER DOWN SAFELY. ENCOURAGED PT TO WORK WITH THERAPY MUCH SHE COULD TO AID IN HER RECOVERY, EDUCATED ON EARLY MOBILITY AND PROPER POSTURE WHEN STANDING. NO OTHER EVENTS THIS SHIFT, CALL LIGHT IN REACH, WILL CTM AND REPORT TO LEIDY GILLESPIE RN.
[2022-12-07 19:43] VITALS: BP 135/48
[2022-12-08 03:21] VITALS: BP 129/50
--- NOTE | 2022-12-08 04:06 | NUR ---
SHIFT SUMMARY POD4 RIGHT KAYLA HIP, DRESSING IS C/D/I. SENSATION AND CIRCULATION REMAINS INTACT IN RLE. VSS. TELE READS SR 61. THE PT HAS SLEPT T/O MOST OF THE NIGHT. PT AMBULATED TO [facility] ONCE AND HAD A LARGE VOID. PT REQUIRED PAIN MEDICATION AFTER THIS AMBULATION. PT REQUIRED MOD ASSIST 2P WITH FWW AND GT BELT. PT WAS ABLE TO BEAR WEIGHT AND PIVOT SELF. PT MEDICATED WITH MILK OF MAG FOR C/O CONSTIPATION AND NO BM FOR WHOLE ADMISSION. DRESSING CHANGED ON POWERGLIDE. NO ACUTE EVENTS T/O THE NIGHT. PLAN FOR PT TO BE MEDICALLY CLEARED AND D/C TO [facility]. THE PATIENT IS CURRENTLY RESTING, IN NO DISTRESS, CALL LIGHT IN REACH
[2022-12-08 07:28] VITALS: BP 146/66
[2022-12-08 15:16] VITALS: BP 134/53
--- NOTE | 2022-12-08 15:36 | NUR ---
SHIFT SUMMARY: POD 4 RIGHT KAYLA HIP PATIENT IS A&OX3-4 SHE FORGETS SMALL DETAILS BUT IS EASILY REORIENTED AND REMINDED. VS ARE WNL AND IS ON RA. PAIN IS MANAGED WITH ORAL PAIN MEDICATIONS. PATIENT DID HAVE A BM TODAY WITH BOWEL CARE AND IS VOIDING. HER RIGHT HIP HAS AN AQUACEL THAT IS C/D/I. DENIES NUMBNESS AND TINGLING. SHE IS ABLE TO MOVE ALL FINGERS AND TOES WHEN ASKED. SHE IS A 1-2 PERSON MODERATE ASSIST WITH FWW AND GAIT BELT. PATIENT NEEDS VERBAL ENCOURAGEMENT WITH AMBULATION TO HELP WITH HER CONFIDENCE. PATIENT IS A STAND PIVOT FROM [id number]. SHE IS NOW LAYING BACK IN BED AFTER SITTING UP IN A CHAIR MAJORITY OF THE SHIFT. CALL LIGHT WITHIN REACH. CALLS APPROPRIATELY. THE PLAN IS TO DISCHARGE TO A SNF TOMORROW ONCE BLOOD SUGARS ARE BETTER MANAGED.
[2022-12-08 19:51] VITALS: BP 123/46
[2022-12-09 04:05] VITALS: BP 122/65
--- NOTE | 2022-12-09 04:14 | NUR ---
SHIFT SUMMARY POD5 R KAYLA HIP. DRESSING IS C/D/I. SENSATION AND CIRCULATION REMAIN INTACT IN RLE. VSS, TELE READS SB AT 55. PT REMAINS ASYMPTOMATIC. PT SLEPT WELL T/O THE NIGHT. MEDICATED FOR PAIN WITH TYLENOL AND ULTRAM. PT GOT OOB ONCE TO VOID. REQUIRING MOD 2P ASSIST. MINIMAL PO INTAKE NOTED. PT REQUIRING ONGOING ENCOURAGEMENT T/O ADL'S. NO ACUTE EVENTS NOTED. PLAN FOR PT TO D/C TO SNF TODAY. THE PATIENT IS CURRENTLY SLEEPING, IN NO DISTRESS, CALL LIGHT IN REACH.
[2022-12-09 07:00] VITALS: BP 141/51
--- NOTE | 2022-12-09 07:30 | NUR ---
PATIENT CONSENT STATEMENT. PATIENT CONSENTED THIS 2ND YEAR [facility] RN STUDENT TO PARTICIPATE IN HER CARE TODAY.
--- NOTE | 2022-12-09 07:30 | NUR ---
PATIENT CONSENT STATEMENT. PATIENT CONSENTED THIS 2ND YEAR [facility] RN STUDENT TO PARTICIPATE IN HER CARE TODAY.
[2022-12-09 09:10] VITALS: BP 135/58
[2022-12-09 11:56] LABS: SARS-Cov-2 (COVID-19) PCR, MMC NEGATIVE (NEGATIVE)
[2022-12-09 12:05] VITALS: BP 134/55
--- NOTE | 2022-12-09 12:05 | NUR ---
TELEPHONE CALL PLACED TO PROVIDE REPORT TO [facility] FAISAL JORDAN. SPOKE WITH MAURIZIO ARZOLA AND GAVE REPORT FOR PATIENT.
--- NOTE | 2022-12-09 13:00 | NUR ---
PATIENT DISCHARGED. PT DISCHARGED TO [facility]. PT'S INCISION IS CLEAN DRY AND INTACT. PT TRANSPORTED VIA WHEEL CHAIR.
== END 2022-12-09 13:10 | DRG 521 ==
LOC: ER 15:11 → SURS 20:07
PROVIDERS: Hospitalist; Internal Medicine; Internal Medicine Cardiovascular Disease; Orthopaedic Surgery; Student in an Organized Health Care Education/Training Program; ADMIT Internal Medicine
PROC: 0SRR0J9 Replacement of Right Hip Joint, Femoral Surface with Synthetic Substitute, Cemented, Open Approach (ICD-10-PCS; 2022-12-04)
PROC: 0T9B70Z Drainage of Bladder with Drainage Device, Via Natural or Artificial Opening (ICD-10-PCS; principal; 2022-12-04 13:00)
DX: S72.034A Nondisplaced midcervical fracture of right femur, initial encounter for closed fracture (principal); I50.33 Acute on chronic diastolic (congestive) heart failure; I13.0 Hypertensive heart and chronic kidney disease with heart failure and stage 1 through stage 4 chronic kidney disease, or unspecified chronic kidney disease; I24.8 Other forms of acute ischemic heart disease; N17.9 Acute kidney failure, unspecified; Z20.822 Contact with and (suspected) exposure to COVID-19; Z66 Do not resuscitate; I25.10 Atherosclerotic heart disease of native coronary artery without angina pectoris; E78.5 Hyperlipidemia, unspecified; I25.5 Ischemic cardiomyopathy; R94.31 Abnormal electrocardiogram [ECG] [EKG]; N18.31 Chronic kidney disease, stage 3a; K59.00 Constipation, unspecified; I34.0 Nonrheumatic mitral (valve) insufficiency; I35.0 Nonrheumatic aortic (valve) stenosis; E11.22 Type 2 diabetes mellitus with diabetic chronic kidney disease; R41.3 Other amnesia; R09.02 Hypoxemia; E66.9 Obesity, unspecified; Z88.8 Allergy status to other drugs, medicaments and biological substances; Z91.038 Other insect allergy status; Z79.4 Long term (current) use of insulin; Z79.82 Long term (current) use of aspirin; Z95.1 Presence of aortocoronary bypass graft; Z68.36 Body mass index [BMI] 36.0-36.9, adult; I25.2 Old myocardial infarction; Z99.81 Dependence on supplemental oxygen; Z79.899 Other long term (current) drug therapy; W01.198A Fall on same level from slipping, tripping and stumbling with subsequent striking against other object, initial encounter
CPT/HCPCS: 36415; 51702; 71045; 71260; 72170; 73502; 73700; 76377; 80048; 80053; 81001; 82947; 83735; 83880; 84100; 84484; 85025; 85520; 85610; 85730; 86850; 86900; 86901; 87086; 93005; 93010; 93306; 93971; 94760; 96374; 96375; 97110; 97112; 97161; 97166; 97530; 97535; 99285-25; A9270; C1713; C1776; J0171; J0360; J0690; J0735; J1644; J1815; J1885; J1940; J2250; J2405; J2704; J2795; J3010; J3370; J7120; Q9967; U0002

== ENCOUNTER 2023-05-30 14:18 | Emergency (ER) | payer BC ==
[~2023-05-30] VITALS: Ht 160 cm; Wt 90.7 kg
[2023-05-30] MEDS ORDERED: Ultram50 MG PO (15:53)
[2023-05-30 16:23] VITALS: BP 148/63
== END 2023-05-30 16:29 | disposition home or self-care (01) ==
LOC: ER 14:18
DX: M25.551 Pain in right hip (principal); E11.9 Type 2 diabetes mellitus without complications; I10 Essential (primary) hypertension; I25.10 Atherosclerotic heart disease of native coronary artery without angina pectoris; I42.8 Other cardiomyopathies; Z91.81 History of falling; Z91.038 Other insect allergy status; Z88.8 Allergy status to other drugs, medicaments and biological substances; Z79.84 Long term (current) use of oral hypoglycemic drugs; Z79.4 Long term (current) use of insulin; Z79.899 Other long term (current) drug therapy; Z79.82 Long term (current) use of aspirin
CPT/HCPCS: 72170; 99283-25; A9270

== ENCOUNTER → 2024-05-21 | Outpatient (CLI) | payer BC ==
[~2024-05-21] MED LIST changes: +Ultram50 MG PO
== END ==
LOC: LAB SHORT 17:30 → LAB 17:30
DX: N39.0 Urinary tract infection, site not specified (principal)
CPT/HCPCS: 87077; 87086; 87186

== ENCOUNTER → 2024-11-13 | Outpatient (CLI) | payer BC ==
[2024-11-13 11:25] LABS: Creatinine, Urine Random 46.4 mg/dL (27.00-270.00)
[2024-11-13 11:51] LABS: Microalb/Creat Ratio UR, Rand 1148.71 mg/g (0.000-30.000)
== END | disposition home or self-care (01) ==
LOC: LAB 09:32 → LAB SHORT 09:32
PROVIDERS: Internal Medicine Endocrinology, Diabetes & Metabolism
DX: R80.9 Proteinuria, unspecified (principal)
CPT/HCPCS: 82043; 82570